=== PATIENT | male | born 1995 | race Caucasian/White ===

== ENCOUNTER 2018-05-10 12:46 | Emergency (ER) | payer BC, OTHER ==
[~2018-05-10] VITALS: Ht 180.3 cm; Wt 87.0 kg
[2018-05-10] MEDS ORDERED: DIPH,PERTUSS(ACELL),TET VAC/PF 0.5 ML IM-VACC ONE ×2 (13:17→13:30)
[2018-05-10 14:26] VITALS: BP 133/88
== END 2018-05-10 14:29 | disposition home or self-care (01) ==
LOC: ED 14:08
DX: S61.012A Laceration without foreign body of left thumb without damage to nail, initial encounter (principal); W26.0XXA Contact with knife, initial encounter; Y93.89 Activity, other specified; Y92.69 Other specified industrial and construction area as the place of occurrence of the external cause; Y99.8 Other external cause status
CPT/HCPCS: 12002; 90471; 90715